=== PATIENT | male | born 1980 | race Two or more races ===

== ENCOUNTER 2019-02-24 09:31 | Emergency (ER) | payer OTHER ==
[2019-02-24 10:35] LABS: Basophils # (Auto) 0.1 K/mm3 (0.0-0.1); Basophils % (Auto) 0.9 % (0.0-1.8); Eosinophils # (Auto) 0.4 K/mm3 (0.0-0.4); Eosinophils % (Auto) 2.6 % (0.0-4.3); Hematocrit 47.4 % (35.5-45.6); Hemoglobin 16.4 gm/dl (11.8-15.2); Lymphocytes # (Auto) 3.4 K/mm3 (1.2-5.4); Lymphocytes % (Auto) 24.7 % (13.4-35.0); Mean Corpuscular HGB Conc 35 % (32-34); Mean Corpuscular Volume 86 fl (84-94); Monocytes # (Auto) 0.9 K/mm3 (0.0-0.8); Monocytes % (Auto) 6.3 % (0.0-7.3); Platelet Count 343 K/mm3 (140-440); Red Cell Distribution Width 15.2 % (13.2-15.2)
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
[2019-02-24 10:52] LABS: BUN/Creatinine Ratio 9; Blood Urea Nitrogen 9 mg/dL (9-20); Calcium 9.3 mg/dL (8.4-10.2); Hemolysis Index 156
[2019-02-24] MEDS ORDERED: XANAX PO ONE ×2 (10:59→16:28)
[2019-02-24 11:15] LABS: Amphetamine Screen,Urine PRESUMPTIVE NEGATIVE; Benzodiazepines Screen,Urine PRESUMPTIVE NEGATIVE; Cocaine Screen,Urine PRESUMPTIVE NEGATIVE; Methadone Screen,Urine PRESUMPTIVE NEGATIVE; Opiate Screen,Urine PRESUMPTIVE NEGATIVE
[2019-02-24 11:18] LABS: Bilirubin,Urine NEG (Negative); Blood,Urine NEG (Negative); Color,Urine Yellow (Yellow); Protein,Urine <15 mg/dL mg/dL (Negative); Urobilinogen,Urine < 2.0 mg/dL (<2.0)
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
[2019-02-24 11:28] LABS: Cannabinoid Screen,Urine PRESUMPTIVE POSITIVE
[2019-02-24] MEDS ORDERED: HABITROL TD ONE (11:59)
[2019-02-24] MEDS ORDERED: XANAX ONE (16:32)
[2019-02-25 08:40] VITALS: BP 150/99
== END 2019-02-25 10:32 ==
LOC: ED 09:31 → EEVIPCON 09:31 → ED 02-25 10:32
DX: F32.9 Major depressive disorder, single episode, unspecified (principal); F17.200 Nicotine dependence, unspecified, uncomplicated; F12.10 Cannabis abuse, uncomplicated
CPT/HCPCS: 36415; 70450; 80048; 80307; 81001; 85025; 99285; G0480; 80320